=== PATIENT | female | born 1980 | race Caucasian/White ===

== ENCOUNTER 2017-03-06 23:44 | Emergency (ER) | payer BC ==
[2017-03-07 01:32] LABS: Urine Bilirubin Negative (Negative); Urine Glucose Negative (Negative); Urine Nitrite Negative (Negative)
[2017-03-07 01:42] LABS: Hematocrit 39 % (35-47); Hemoglobin 12.8 g/dl (12.0-16.0); Mean Corpuscular HGB Conc 33 g/dl (31-36); Mean Corpuscular Hemoglobin 30 pg (27-31); Mean Corpuscular Volume 91 fL (80-97); Mean Platelet Volume 9 um3 (7.4-10.4); Red Blood Count 4.24 10^6/ul (4.0-5.4); Red Cell Distribution Width 13 % (10.5-15); White Blood Count 9.2 10^3/ul (3.5-10.8)
[2017-03-07 01:43] LABS: Add Diff/Slide Review? Slide Review Added; Comments Flag Yes
--- NOTE | 2017-03-07 01:44 | ED ---
GI/ HPI - HPI Summary HPI Summary: 36F LMP Dec 8 at 11 weeks VAISHALI [birth year] presents with abdominal pain today right side today. She had sudden onset of pain today greatest in RUQ. She denies any n/v/d/c, dysuria, flank pain, urgency, frequency, vaginal bleeding or discharge. She denies any fevers. She has never had this pain before. She had labs today that were normal. She denies any previous abdominal surgeries. She states pain is constant but is sharp at times. Admits to decrease in appetite and had mashed potato for dinner. - History of Current Complaint Chief Complaint: EDAbdPain Time Seen by Provider: 03/07/17 01:08 Stated Complaint: 11 WKS PREG/ RIGHT SIDED PAIN Pain Intensity: 7 - Allergy/Home Medications Allergies/Adverse Reactions: Allergies Allergy/AdvReac Type Severity Reaction Status Date / Time No Known Allergies Allergy Verified 03/07/17 00:57 PMH/Surg Hx/FS Hx/Imm Hx Cardiovascular History: Denies: Hx Hypertension Respiratory History: Denies: Hx Asthma - Immunization History Date of Tetanus Vaccine: utd Date of Influenza Vaccine: none Infectious Disease History: No Infectious Disease History: Denies: Traveled Outside the [place] in Last 30 Days - Family History Known Family History: Negative: Cardiac Disease - Social History Alcohol Use: None Substance Use Type: Reports: None Smoking Status (MU): Former Smoker Review of Systems Negative: Fever Negative: Chest Pain Negative: Shortness Of Breath Positive: Abdominal Pain - right sided abdominal pain. Negative: Vomiting, Diarrhea, Nausea All Other Systems Reviewed And Are Negative: Yes Physical Exam Triage Information Reviewed: Yes Vital Signs On Initial Exam: Initial Vitals Temp Pulse Resp BP Pulse Ox 98.3 F 72 16 121/68 100 03/06/17 23:50 03/06/17 23:50 03/06/17 23:50 03/06/17 23:50 03/06/17 23:50 Vital Signs Reviewed: Yes Appearance: Positive: Well-Appearing Skin: Positive: Warm, Dry Head/Face: Positive: Normal Head/Face Inspection Eyes: Positive: Normal, Conjunctiva Clear Respiratory/Lung Sounds: Positive: Clear to Auscultation, Breath Sounds Present Cardiovascular: Positive: Normal, RRR Abdomen Description: Positive: Soft, Other: - tender in RLQ and RUQ, no rebound , tenderness greatest in RUQ, neg mariscal, rovsings, obturator. Negative: Distended, Guarding Bowel Sounds: Positive: Present - Syed Coma Scale Coma Scale Total: 15 Diagnostics - Vital Signs Vital Signs Temp Pulse Resp BP Pulse Ox 03/07/17 01:03 72 100 03/07/17 01:01 101/85 03/07/17 00:54 98.8 F 72 14 101/85 100 03/06/17 23:50 98.3 F 72 16 121/68 100 - Laboratory Lab Results: Lab Results 03/07/17 03/07/17 Range/Units 01:15 01:25 WBC 9.2 (3.5-10.8) 10^3/ul RBC 4.24 (4.0-5.4) 10^6/ul Hgb 12.8 (12.0-16.0) g/dl Hct 39 (35-47) % MCV 91 (80-97) fL MCH 30 (27-31) pg MCHC 33 (31-36) g/dl RDW 13 (10.5-15) % Plt Count 311 (150-450) 10^3/ul MPV 9 (7.4-10.4) um3 Neut % (Auto) 71.9 (38-83) % Lymph % (Auto) 18.1 L (25-47) % [place] % (Auto) 6.9 (1-9) % Eos % (Auto) 0.8 (0-6) % Baso % (Auto) 2.3 H (0-2) % Absolute Neuts (auto) 6.6 (1.5-7.7) 10^3/ul Absolute Lymphs (auto) 1.7 (1.0-4.8) 10^3/ul Absolute Monos (auto) 0.6 (0-0.8) 10^3/ul Absolute Eos (auto) 0.1 (0-0.6) 10^3/ul Absolute Basos (auto) 0.2 (0-0.2) 10^3/ul Absolute Nucleated RBC 0.01 10^3/ul Nucleated RBC % 0.1 Urine Color Yellow Urine Appearance Clear Urine pH 5.0 (5-9) Ur Specific [place] 1.013 (1.010-1.030) Urine Protein Negative (Negative) Urine Ketones Negative (Negative) Urine Blood Negative (Negative) Urine Nitrate Negative (Negative) Urine Bilirubin Negative (Negative) Urine Urobilinogen Negative (Negative) Ur Leukocyte Esterase Negative (Negative) Urine Glucose Negative (Negative) Result Diagrams: 03/07/17 01:25 03/07/17 01:25 Lab Statement: Any lab studies that have been ordered have been reviewed, and results considered in the medical decision making process. - Ultrasound No standard instances Ultrasound Interpretation: No Acute Changes - normal and gallbladder Ultrasound Interpretation Completed By: Radiologist NATALIE Course/Dx - Course Course Of Treatment: 36F at 11 weeks presents with right side abdominal pain today. denies any fever, flank pain, dysuria, n/v/d/c. on exam tenderness greatest in RUQ. neg rovsings, mariscal. labs noraml WBC and crp. urine normal. normal and gallbladder. told to follow up with obgyn. patient understands and agrees with plan - Diagnoses Differential Diagnoses - Female: Appendicitis, Gall Bladder Disease - , Urinary Tract Infection Provider Diagnoses: Abdominal pain during Discharge - Discharge Plan Condition: Good Disposition: HOME Patient Education Materials: Abdominal Pain (ED) Referrals: Erlinda Garcia NP [Primary Care Provider] - Additional Instructions: Follow up with obgyn or primary today Take Tylenol for pain every 6 hours as needed. Return to ED if pain becomes localized in right lower quadrant, develop fever, vaginal bleeding, dysuria, or any new or worsening symptoms
[2017-03-07 02:00] LABS: Albumin 3.8 g/dL (3.2-5.2); BUN/Creatinine Ratio 12.7 (8-20); Calcium 9.3 mg/dL (8.6-10.3); EGFR African American 161.8 (>60); EGFR Non-African American 125.8 (>60); Globulin 3.2 g/dL (2-4); Total Bilirubin 0.3 mg/dL (0.2-1.0)
[2017-03-07 03:24] VITALS: BP 108/77
--- NOTE | 2017-03-07 08:13 | RAD ---
HISTORY: Right upper quadrant pain. COMPARISONS: None TECHNIQUE: Multiple transverse and longitudinal ultrasound images were obtained of the right upper quadrant. FINDINGS: LIVER: The liver is normal in dimensions and echogenicity. Normal hepatic and portal venous blood flow is duplicated with color flow imaging. There is no gross intrahepatic biliary duct dilatation. GALLBLADDER AND EXTRAHEPATIC BILIARY DUCT: The gallbladder is normal in appearance without intraluminal stones or other soft tissue masses. There is no pericholecystic fluid or gallbladder wall thickening. The common bile duct measures a maximum diameter of 4 mm. PANCREAS: The portions of the pancreas not obscured by bowel gas are normal in appearance. RIGHT KIDNEY: The right kidney is normal in size, morphology and echogenicity. AORTA AND IVC: The visualized portions are normal in appearance and not pathologically dilated. IMPRESSION: Normal ultrasound of the right upper quadrant.
--- NOTE | 2017-03-07 08:18 | RAD ---
HISTORY: Right lower quadrant pain in a female. The report (only) from the most recent in office ultrasound dated February 24, 2017 indicating a gestational age of 11 weeks and 0 days. COMPARISONS: None TECHNIQUE: Multiple transverse and longitudinal ultrasound images were obtained of the pelvis using grayscale, color flow, spectral and M-mode sonographic imaging. FINDINGS: UTERUS: The uterus is normal in shape, size, contour, and echotexture. GESTATION: There is a single live intrauterine gestation. The crown-rump length measures 3.7 cm yielding a gestational age of 10 weeks and 5 days. The mean gestational sac diameter measures 5.6 centimeters yielding a gestational age of 10 weeks and 5 days. A yolk sac is present measuring 4 mm in diameter. cardiac motion is detected at a rate of 153 beats per minute. CUL-DE-SAC: There is no free fluid within the cul-de-sac. RIGHT OVARY: The right ovary measures 4.1 x 3.5 x 3.1 cm. An anechoic and avascular cystic structure measuring up to 2.8 cm is consistent with the corpus luteum. LEFT OVARY: The left ovary measures 2.1 x 1.4 x 1.8 cm cm. IMPRESSION: Single live intrauterine gestation with a crown-rump length yielding a gestational age of 10 weeks and 5 days.
== END 2017-03-07 03:25 | disposition home or self-care (01) ==
LOC: ED 23:44
DX: O26.891 Other specified pregnancy related conditions, first trimester (principal); R10.84 Generalized abdominal pain; Z87.891 Personal history of nicotine dependence
CPT/HCPCS: 36415; 76705; 76801; 80053; 81003; 83690; 84702; 85025; 86141; 99282

== ENCOUNTER 2017-09-28 20:39 | Inpatient (IN) | payer BC ==
[2017-09-28] MEDS ORDERED: Promethazine INJ(RESTRICTED)* 25 MG/ML 1 ML VIAL IV PRN (22:36)
[2017-09-28] MEDS ORDERED: Nalbuphine* 20 MG/ML 1 ML VIAL IV PRN (22:36)
[2017-09-28] MEDS ORDERED: Promethazine INJ(RESTRICTED)* 25 MG/ML 1 ML VIAL ONE (22:42)
[2017-09-28] MEDS ORDERED: Nalbuphine* 20 MG/ML 1 ML VIAL ONE (22:42)
[2017-09-28 22:52] LABS: Hematocrit 37 % (35-47); Hemoglobin 12.2 g/dl (12.0-16.0); Mean Corpuscular HGB Conc 34 g/dl (31-36); Mean Corpuscular Hemoglobin 30 pg (27-31); Mean Corpuscular Volume 89 fL (80-97); Mean Platelet Volume 10 um3 (7.4-10.4); Red Cell Distribution Width 14 % (10.5-15); White Blood Count 12.9 10^3/ul (3.5-10.8)
[2017-09-29] MEDS ORDERED: OBEPIDURAL* 250 ML ONE (02:35)
[2017-09-29] MEDS ORDERED: Phenylephrine IV* 40 MCG/ML 10 ML SYRINGE IV PUSH PRN (03:09)
[2017-09-29] MEDS ORDERED: Sodium Citrate/Citric Acid* 15 ML UDC PO PRN (03:09)
[2017-09-29] MEDS ORDERED: Famotidine TAB* 20 MG PO PRN (03:09)
[2017-09-29] MEDS ORDERED: OBEPIDURAL* 250 ML EPIDURAL SCH (04:00)
[2017-09-29] MEDS ORDERED: Oxytocin in LR* 20 UNITS/1,000 ML BAG IVPB ONE (08:05)
[2017-09-29] MEDS ORDERED: Acetaminophen TAB* 325 MG PO PRN (11:57)
[2017-09-29] MEDS ORDERED: Witch Hazel PAD* JAR TOPICAL PRN (11:57)
[2017-09-29] MEDS ORDERED: Dibucaine 1% 28.35 GM TUBE PR PRN (11:57)
[2017-09-29] MEDS ORDERED: Glycerin ADULT SUPP PR PRN (11:57)
[2017-09-29] MEDS ORDERED: Measles, Mumps,Rubella VACC* 0.5 ML/VIAL SUBCUT ONE (11:57)
[2017-09-29] MEDS ORDERED: Oxytocin in LR* 20 UNITS/1,000 ML BAG IVPB SCH (12:00)
[2017-09-29] MEDS ORDERED: Simethicone TAB* 80 MG TAB.CHEW PO SCH (12:30)
[2017-09-29] MEDS: Docusate CAP* 100 MG PO SCH ×2 (15:47→19:41)
[2017-09-29] MEDS: Ibuprofen TAB* 600 MG PO PRN (15:47)
[2017-09-30] MEDS: Ibuprofen TAB* 600 MG PO PRN ×2 (04:07→17:56)
[2017-09-30] MEDS ORDERED: Ferrous Gluconate TAB* 324 MG TAB PO SCH (09:00)
[2017-09-30] MEDS: Docusate CAP* 100 MG PO SCH ×3 (09:08→21:12)
[2017-09-30 10:11] LABS: Hematocrit 33 % (35-47); Hemoglobin 10.9 g/dl (12.0-16.0); Mean Corpuscular HGB Conc 33 g/dl (31-36); Mean Corpuscular Hemoglobin 30 pg (27-31); Mean Corpuscular Volume 91 fL (80-97); Mean Platelet Volume 9 um3 (7.4-10.4); Red Blood Count 3.67 10^6/ul (4.0-5.4); Red Cell Distribution Width 15 % (10.5-15); White Blood Count 16.2 10^3/ul (3.5-10.8)
[2017-10-01] MEDS: Docusate CAP* 100 MG PO SCH (08:42)
[2017-10-01] MEDS: Ibuprofen TAB* 600 MG PO PRN (08:44)
[2017-10-01 09:31] VITALS: BP 144/80
== END 2017-10-01 12:53 | disposition home or self-care (01) | DRG 560 ==
LOC: MCHOBOUT 20:39 → MCHOB 21:37
PROVIDERS: ADMIT Obstetrics & Gynecology; ATTEND Obstetrics & Gynecology
PROC: 10E0XZZ Delivery of Products of Conception, External Approach (ICD-10-PCS; principal; 2017-09-29)
PROC: 0W8NXZZ Division of Female Perineum, External Approach (ICD-10-PCS; 2017-09-29)
DX: O48.0 Post-term pregnancy (principal); O69.81X0 Labor and delivery complicated by cord around neck, without compression, not applicable or unspecified; Z3A.40 40 weeks gestation of pregnancy; Z37.0 Single live birth
CPT/HCPCS: 36415; 85025; 86850; 86900; 86901; 90707; A9270-GY; J2300; J2550

== ENCOUNTER 2018-03-23 14:57 | Emergency (ER) | payer BC ==
--- NOTE | 2018-03-23 15:07 | UC ---
Skin Complaint HPI - HPI Summary HPI Summary: 37 yo female presents with painful growth behind her right ear. First noticed about a week ago. Has been doing warm compresses and putting tea tree oil on it with no relief. Denies fever, chills, sore throat, earache, or changes in hearing. - History of Current Complaint Chief Complaint: UCSkin Time Seen by Provider: 03/23/18 15:07 Stated Complaint: SOFT TISSUE COMPLAINT Hx Obtained From: Patient Onset/Duration: Gradual Onset Skin Exposure Onset/Duration: Days Ago Timing: Constant Onset Severity: Mild Current Severity: Moderate Pain Intensity: 5 Pain Scale Used: 0-10 Numeric - Allergy/Home Medications Allergies/Adverse Reactions: Allergies Allergy/AdvReac Type Severity Reaction Status Date / Time No Known Allergies Allergy Verified 03/23/18 15:08 Review of Systems Constitutional: Negative Skin: Other - Growth behind right ear ENT: Negative Respiratory: Negative Cardiovascular: Negative Gastrointestinal: Negative Neurovascular: Negative Neurological: Negative Psychological: Negative All Other Systems Reviewed And Are Negative: Yes PMH/Surg Hx/FS Hx/Imm Hx - Additional Past Medical History Additional PMH: None Previously Healthy: Yes - Surgical History Surgical History: None - Family History Known Family History: Negative: Cardiac Disease - Social History Occupation: Employed Full-time Lives: With Family Alcohol Use: None Substance Use Type: None Smoking Status (MU): Never Smoked Tobacco Have You Smoked in the Last Year: No When Did the Patient Quit Smoking/Using Tobacco: 2009 - Immunization History Most Recent Influenza Vaccination: 08/07/2017 Most Recent Pneumonia Vaccination: none Physical Exam - Summary Physical Exam Summary: GENERAL: NAD. WDWN. No pain distress. SKIN: Posterior right auricle: 1.0cm area of mild edema and erythema. Fluctuant. Moderate TTP. No streaking, bleeding, or drainage. NECK: Supple. Nontender. No lymphadenopathy. CHEST: No accessory muscle use. Breathing comfortably and in no distress. CV: RRR. Without m/r/g. NEURO: Alert. CN II-XII grossly intact. PSYCH: Age appropriate behavior. Triage Information Reviewed: Yes Course/Dx - Course Course Of Treatment: A time out was performed, witnessed, and signed. The area was cleansed with an alcohol pad. 1mL of 2% lidocaine without epi was administered and good anesthetization was achieved. The abscess was lanced with a #11 blade. Copious clear fluid and yellow purulent material was able to be expressed. Pt tolerated procedure well. - Diagnoses Provider Diagnoses: Epidermal cyst right ear Discharge - Sign-Out/Discharge Documenting (check all that apply): Discharge/Admit/Transfer - Discharge Plan Condition: Stable Disposition: HOME Patient Education Materials: Epidermal Inclusion Cysts (ED) Referrals: Erlinda Garcia [employer]IV[employer] MANAGER [Primary Care Provider] - Additional Instructions: If you develop a fever, shortness of breath, chest pain, new or worsening symptoms - please call your PCP or go to the ED. - Billing Disposition and Condition Condition: STABLE Disposition: HOME
[2018-03-23 15:08] VITALS: BP 135/84
[2018-03-23] MEDS ORDERED: Lidocaine 2% PF * 5 ML VIAL INJ ONE (15:16)
[2018-03-23] MEDS ORDERED: Lidocaine 2% PF * 5 ML VIAL ONE (15:18)
== END 2018-03-23 15:47 | disposition home or self-care (01) ==
LOC: UCEAST 14:57
DX: L72.0 Epidermal cyst (principal)
CPT/HCPCS: 10060; 99212; G0463